=== PATIENT | female | born 2005 | race Asian ===

== ENCOUNTER 2024-01-16 14:00 | Outpatient (RCR) | payer BC, SELFPAY | END 2024-03-10 09:52 | disposition home or self-care (01) | PROVIDERS: Visit Provider Family Medicine | DX: M25.562 Pain in left knee (principal); M62.81 Muscle weakness (generalized); Z51.89 Encounter for other specified aftercare | CPT/HCPCS: 97110; 97140; 97161 ==

== ENCOUNTER 2024-01-28 07:01 | Outpatient (CLI) | payer BC, SELFPAY ==
--- NOTE | 2024-01-28 07:15 | MR_ITS ---
Patient: ABRAHAM LOVELL Facility:?[facility] RIS Patient ID:?[id number] Site Patient ID:?[id number]. Site :?[id number] Study:?MRI-Extremity Right HAMSTRING-01/28/2024 8:29:15 AM Ordering Physician:OTIS CEVALLOS Final Report: INDICATION: Pain after running. Assess hamstring origin. COMPARISON: None. TECHNIQUE: Axial T1 and STIR, coronal T1 and STIR and sagittal PD and T2 sequences centered on the right hamstring origin. FINDINGS: Edema around the semimembranosus tendon origin which is slightly low signal expanded but without significant tear. The biceps femoris and the semitendinosis origin look intact. No hamstring muscle atrophy or edema. No fracture of the ischial tuberosity. There is some hazy edema like signal at the origin of the right vastus inter medialis curving along the ventral femoral diaphysis margin. No abnormal marrow signal or periosteal reaction associated with the femur. IMPRESSION: Mild strain of the hamstring origin of semimembranosus. Mild strain of the proximal vastus intermedius Dictated by Paul Barros MD @ 01/28/2024 2:00:01 PM Signed by:?Paul Barros MD @01/28/2024 2:00:01 PM (Electronic Signature)
== END 2024-01-28 07:02 | disposition home or self-care (01) ==
PROVIDERS: Visit Provider Surgery
DX: S76.311A Strain of muscle, fascia and tendon of the posterior muscle group at thigh level, right thigh, initial encounter (principal)
CPT/HCPCS: 73718